=== PATIENT | male | born 1990 | race American Indian/Alaskan Native ===

== ENCOUNTER 2017-05-04 22:23 | Emergency (ER) | payer MEDICAID, OTHER ==
[2017-05-04 22:34] VITALS: BP 144/97
--- NOTE | 2017-05-04 22:53 | EDM.PDOC ---
ED HPI GENERAL MEDICAL PROBLEM - General Chief Complaint: ENT Problem Stated Complaint: GET NOSE CHECKED TO SEE IF BROKEN Time Seen by Provider: 05/04/17 22:30 Source of Information: Reports: Patient History Limitations: Reports: No Limitations - History of Present Illness INITIAL COMMENTS - FREE TEXT/NARRATIVE: Patient presents to ER with complaints of nose pain. States was playing basketball yesterday and got hit in the nose by an elbow. He is questioning if his nose is broke. Does have mild discomfort. Got a bloody nose at the time of the event. No other complaints. 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 [No Known Home Meds] 06/08/14 [History] Past Medical History - Past Health History Medical/Surgical History: Denies Medical/Surgical History Social & Family History - Tobacco Use Smoking Status *Q: Never Smoker Second Hand Smoke Exposure: No - Caffeine Use Caffeine Use: Reports: Tea - Alcohol Use Days Per Week of Alcohol Use: 0 - Recreational Drug Use Recreational Drug Use: No ED ROS ENT - Review of Systems Review Of Systems: ROS reveals no pertinent complaints other than HPI. ED EXAM, ENT - Physical Exam Exam: See Below Exam Limited By: No Limitations General Appearance: Alert, WD/WN, No Apparent Distress Ears: Normal External Exam, Normal TMs Nose: Nasal Swelling, Nasal Tenderness, Dried Blood, Other (small abrasion to bridge of nose, mild swelling noted. Good alignment palpated) Mouth/Throat: Normal Inspection, Normal Teeth Head: Normocephalic Neck: Normal Inspection, Supple, Non-Tender Course - Vital Signs Last Recorded V/S: Last Vital Signs Temp 99.0 F 05/04/17 22:25 Pulse 106 H 05/04/17 22:25 Resp 18 05/04/17 22:25 BP 144/97 H 05/04/17 22:25 Pulse Ox 94 L 05/04/17 22:25 - Orders/Labs/Meds Orders: Active Orders 24 hr Category Date Time Status Nasal Bone Min 3V [CR] Stat Exams 05/04/17 22:36 Ordered Departure - Departure Time of Disposition: 23:05 Disposition: Home, Self-Care 01 Condition: Good Clinical Impression: Contusion of nose - Discharge Information Forms: ED Department Discharge Additional Instructions: 1. Rest 2. Ice to nose 3. Tylenol or ibuprofen as needed for discomfort 4. Follow up with usual provider if symptoms persist - My Orders Last 24 Hours: My Active Orders 05/04/17 22:36 Nasal Bone Min 3V [CR] Stat - Assessment/Plan Last 24 Hours: My Active Orders 05/04/17 22:36 Nasal Bone Min 3V [CR] Stat
== END 2017-05-04 23:10 | disposition home or self-care (01) ==
LOC: CC.ED 22:23
DX: S00.33XA Contusion of nose, initial encounter (principal); W51.XXXA Accidental striking against or bumped into by another person, initial encounter; Y93.67 Activity, basketball
CPT/HCPCS: 70160; 99283